=== PATIENT | female | born 1955 | race Caucasian/White ===

== ENCOUNTER 2023-05-20 15:52 | Inpatient (IN) | payer MEDICARE, OTHER, SELFPAY ==
--- NOTE | 2023-05-20 12:12 | EDRN ---
Abe Holden PA in room w/ pt at this time.
--- NOTE | 2023-05-20 12:17 | ED.GENMED ---
History of Present Illness
General
Chief Complaint: Breathing Problem
Time Seen by Provider: 05/20/23 11:58
Travel History
Have you had any contact with someone who has COVID-19?: No
Do you have any symptoms of coronavirus? Fever > 100 degrees, chills, cough, shortness of breath, sore throat, loss of taste or smell, muscle aches, or headache?: Yes
Symptoms:: SOB
History of Present Illness
History of Present Illness:
67-year-old female with history of asthma, hypertension, and hyperlipidemia presents to the emergency department for evaluation of shortness of breath associated with nasal congestion and coughing for the past 3 to 4 days. Went to her primary care
physician today and was noted to be hypoxic on room air and was thus sent to the emergency department. Patient has no chronic oxygen need. She does not utilize nebulizers for her asthma routinely. She does report a fever over the weekend but this
is since resolved. Did not take any Tylenol or Motrin today. Denies any chest pain.
Review of Systems
Review of Systems
Allergies reviewed?: Yes
All Other Systems: ROS reviewed and negative except as documented in HPI and ROS
Phy Exam
Physical Exam
Physical Exam:
GEN: Tachypneic but otherwise appears well, no immediate distress
Eyes: PERRLA, EOMs intact, no scleral icterus
HENT: NCAT, oral mucosa moist
Lungs: Tachypnea, no accessory muscle use while on supplemental oxygen, expiratory wheezes with prolonged expiratory phase heard throughout all lung lopez, good air exchange throughout
Cardiac: RRR, no M/R/G, no peripheral edema. Radial pulses 2+ bilat
Abdomen: S, NT, ND, NABS, no masses or hepatosplenomegaly
Neuro: AO x 3
MSK: No gross deformity or ecchymosis. morbid obesity limits assessment for edema in the lower extremities
Skin: No rashes, petechiae. Normal color, no pallor or jaundice.
Psych: Calm, cooperative, proper hygiene
Scores
Heart Failure Risk
Heart Failure Risk Score: Not Applicable
Course
Orders/Labs/Results
Orders:
Orders
05/20/23 12:15
Ipratropium/Albuterol Sulfate [Duoneb] 3 ml INH R NOW ONE
05/20/23 12:16
Electrocardiogram (*1) Urgent
Reason for Study: Other
Other Reason for Exam: sepsis
EKG- Treatment ONCE
CR Chest - 2 Views Urgent
Comment:
Reason For Exam: SOB
05/20/23 12:42
COVID-19 Antigen Urgent
Source: Nasal Swab
Comprehensive Metabolic Panel Urgent
Lactic Acid Q4H
Comment: CANCEL 2nd LACTIC ACID IF 1st LACTIC ACID IS LESS THAN 2
NT-proBNP Urgent
Procalcitonin Urgent
PCT Algorithmm Indication: Respiratory
Troponin I Urgent
Blood Culture Q30M
XIANG Source: Blood/Venous
Specimen Description:
Influenza A+B Rapid Molecular Urgent
XIANG Source: Nasal Swab
Specimen Description:
05/20/23 12:58
Blood Culture Q30M
XIANG Source: Blood/Venous
Specimen Description:
05/20/23 14:10
MethylPREDNISolone PF [Solu-Medrol Pf] 125 mg IV NOW STA
05/20/23 14:14
Complete Blood Count/With Diff Routine
Prothrombin Time Routine
05/20/23 15:22
Admit/Transfer Patient As Directed
Co-Sign Provider:
Level of Care: Inpatient admission
Assign to:: Medical/Surgical
Physician / Group: Modesta Luciano
Diagnosis: Asthma exacerbation
Reason for Hospitalization: Asthma exacerbation
Expected length of stay greater than two midnights?: Yes
ELOS- Estimated Length of Stay in days: 2
I certify the patient meets the requirements for IP care: Yes
05/20/23 15:30
Code Status As Directed
Resuscitation Status: Full Code
05/20/23 16:26
Lactic Acid Q4H
Comment: CANCEL 2nd LACTIC ACID IF 1st LACTIC ACID IS LESS THAN 2
Abnormal Lab Results
05/20/23 05/20/23
12:42 14:14
MPV 10.6 H fL
(7.4-10.4)
Absolute Monos (auto) 1.1 H 10^3/uL
(0.1-0.6)
Lymphocytes % 16.7 L %
(20.5-51.1)
Monocytes % 12.9 H %
(1.7-9.3)
PT 15.5 H Sec
(11.4-14.6)
Sodium 132 L mmol/L
(135-145)
Glucose 111 H mg/dl
(70-99)
05/20/23 14:14
05/20/23 12:42
Vital Signs
Initial and Last Documented VS:
Initial Vital Signs
Temp Pulse Resp BP Pulse Ox
97.9 F 93 18 161/83 89
05/20/23 11:45 05/20/23 11:45 05/20/23 11:45 05/20/23 11:45 05/20/23 11:45
Last Documented Vital Signs
Temp Pulse Resp BP Pulse Ox
97.9 F 78 25 147/75 92
05/20/23 11:45 05/20/23 16:45 05/20/23 16:45 05/20/23 16:00 05/20/23 16:45
MDM/Problems Addressed
MDM/Problems Addressed:
Patient noted to be hypoxic on room air. She is diffusely wheezy with no focal abnormal breath sounds, chest x-ray independently interpreted by me is markedly limited by patient body habitus, suspicion for possible left lower lobe infiltrate
however the patient is currently afebrile with a negative procalcitonin. Her presentation is more consistent with viral induced asthmatic exacerbation as opposed to acute bacterial pneumonia. Will treat supportively with steroids and nebulizers.
Given her hypoxia will admit to the hospitalist service
*Critical Care Note
Total Time (30-74mins, 75-104mins- exclusive of procedures): Not Applicable
ED Attending Note
-
Portions of this chart may have been created with voice recognition software.� Occasional wrong word or��sound alike� substitutions may have occurred due to the inherent limitations of voice recognition software.
Discharge Plan
Departure
Patient Disposition: Admit
Date of Disposition: 05/20/23
Time of Disposition: 14:13
Admit to: Med/Surg
Presentation/result/management discussed w/ accepting MD/DO: Hospitalist
Discharge Problem:
Acute asthma exacerbation
Interventions
Interventions:
*Risk Screen - Suicide Last Done: 05/20/23 11:49
*General Assessment Last Done: 05/20/23 11:49
*Neglect/Abuse Screening Last Done: 05/20/23 11:49
ED- Fall Risk Assessment Last Done: 05/20/23 13:00
*ED COVID-19 Vaccine History Last Done: 05/20/23 12:10
ED- Cardiac Assessment Last Done: 05/20/23 13:00
ED- Pulmonary Assessment Last Done: 05/20/23 13:00
[2023-05-20 13:06] LABS: Lactic Acid 0.8 mmol/L (0.7-2.0)
[2023-05-20 13:09] LABS: ALT (SGPT) 17 U/L (0-35); AST (SGOT) 22 U/L (14-36); Albumin 4.1 g/dl (3.5-5.0); Alkaline Phosphatase 89 U/L (38-126); Blood Urea Nitrogen 16 mg/dl (7-17); Calcium 9.1 mg/dl (8.4-10.2); Carbon Dioxide 26 mmol/L (22-30); Chloride 102 mmol/L (98-107); Glucose 111 mg/dl (70-99); Sodium 132 mmol/L (135-145); Total Bilirubin 0.8 mg/dl (0.2-1.3); Total Protein 6.7 g/dl (6.3-8.2); eGFR > 60.00
[2023-05-20] MEDS: DUONEB 3 ML INH ×2 (13:12→19:32)
[2023-05-20 13:13] LABS: Potassium 4.6 mmol/L (3.5-5.1)
[2023-05-20 13:17] LABS: COVID-19 Antigen Negative (Negative)
[2023-05-20 13:20] LABS: NT-proBNP 490 pg/ml; Troponin I < 0.012 ng/ml
[2023-05-20 13:22] LABS: Procalcitonin < 0.05 ng/ml (0.0-0.25)
--- NOTE | 2023-05-20 14:29 | HPS.HSE ---
Family Physician
-
Family Physician: Luis Enrique Ray
Chief Complaint
-
shortness of breath
History of Present Illness
67 female history of morbid obesity hypertension hyperlipidemia tremor bipolar depression presents with progressive persistent shortness of breath wheezing past 3 days with associated fevers chills. Reports a fever high of 101 at home. Afebrile on
ED evaluation, hypoxic on room air 80s, improved with 2 L nasal cannula supplementation. Blood pressure stable. Chest x-ray concerning for possible left lower lobe opacification pneumonia however procalcitonin negative. No significant white
count. COVID flu negative. Patient symptomatically improved with IV steroids and bronchodilators as given in ED, though remains oxygen dependent at this time.
Medical History
Past Medical History
Past Medical History: Reports Other (As above)
Past Surgical History: Reports Other (As above)
Social History
Tobacco: Non-smoker
Alcohol: None
Drug: None
Personal:
Living: Alone
Employment: Not Employed
Family History
Family History: Not pertinent (Reviewed)
Allergies / Home Medications
Allergies reflects when Allergies were last updated in [facility].
Home Medications with original date entered in [facility]
Allergy/Medication List:
Allergies
Allergy/AdvReac Type Severity Reaction Status Date / Time
carbamazepine [From Tegretol] Allergy Intermediate Rash Verified 05/20/23 11:45
erythromycin base AdvReac Nausea / Verified 05/20/23 11:45
Vomiting
Home Medications
acetaminophen 500 mg tablet (Tylenol Extra Strength) 500 mg PO DAILYPRN PRN mild pain 05/20/23
albuterol sulfate 90 mcg/actuation aerosol inhaler 1 puff inhalation R Q4HPRN PRN sob 05/20/23
clobetasol 0.05 % topical cream 1 applic topical HS apply to B/L hands 05/20/23
lithium carbonate 300 mg tablet 300 mg PO DAILY 05/20/23
lithium carbonate 300 mg tablet 600 mg PO QPM 05/20/23
nebivolol 5 mg tablet 5 mg PO QPM 05/20/23
sertraline 100 mg tablet 50 mg PO DAILY 05/20/23
therapeutic multivitamin 1 tab PO DAILY 05/20/23
ziprasidone HCl 40 mg capsule 40 mg PO BID 05/20/23
Review of Systems
-
A 12 point ROS was completed and negative except as noted: Yes
Constitutional: Reports Other (As below)
Physical Exam
Vital Signs
Vital Signs
Temp Pulse Resp BP Pulse Ox
97.9 F 87 23 162/62 99
05/20/23 11:45 05/20/23 14:15 05/20/23 14:15 05/20/23 14:07 05/20/23 13:30
Physical Exam
General: Other (As below)
Laboratory Results
-
05/20/23 12:42
Laboratory Results
PT Cancelled 05/20/23 12:42
INR Cancelled 05/20/23 12:42
Lactic Acid 0.8 mmol/L (0.7-2.0) 05/20/23 12:42
Total Bilirubin 0.8 mg/dl (0.2-1.3) 05/20/23 12:42
AST 22 U/L (14-36) 05/20/23 12:42
ALT 17 U/L (0-35) 05/20/23 12:42
Alkaline Phosphatase 89 U/L (38-126) 05/20/23 12:42
Troponin I < 0.012 ng/ml 05/20/23 12:42
Impression/Plan
-
ROS
General: Denies fever chills night sweats unexpected weight loss
Neuro: Resting tremors present for years as per patient denies seizure loss of consciousness dizziness vertigo
Psych: denies depression hallucinations confusion manic episodes
Endocrine: Denies polyuria polydipsia polyphagia heat/cold intolerance
HEENT: Denies blindness visual disturbances epistaxis
Pulmonary: reports sob dyspnea on exertion wheezing
Cardiovascular: denies chest pain palpitations leg swelling
Hematology: denies signs symptoms of anemia easy bruising/bleeding
Gastrointestinal: denies nausea vomiting diarrhea constipation hematemesis hematochezia melena
Genito-Urinary: denies retention incontinence dysuria
Musculoskeletal: denies joint pain weakness
Dermatology: denies rash laceration bruising
Physical Exam
General: No pallor, cyanosis, or jaundice. Morbidly obese
HEENT: Throat clear. PERRLA Normocephalic atraumatic hirsutism
NECK: Supple. No JVD Carotid Bruits
RESPIRATORY: wheezing
CVS: S1, S2 normal. RRR. No murmur, rub or gallop.
ABDOMEN: Soft, non-tender. No distension. BS+/normal.
EXTREMITIES: No peripheral cyanosis or edema. Left lower extremity psoriasis plaque du just above the foot nontender
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
IMPRESSION:
67 female history of morbid obesity hypertension hyperlipidemia tremor bipolar depression presents with progressive persistent shortness of breath wheezing past 3 days with associated fevers chills. Reports a fever high of 101 at home. Afebrile on
ED evaluation, hypoxic on room air 80s, improved with 2 L nasal cannula supplementation. Blood pressure stable. Chest x-ray concerning for possible left lower lobe opacification pneumonia however procalcitonin negative. No significant white
count. COVID flu negative. Patient symptomatically improved with IV steroids and bronchodilators as given in ED, though remains oxygen dependent at this time.
PLAN:
#Asthma exacerbation due to other viral respiratory infection not COVID or flu
MedSurg admit
DuoNebs 4 times daily
Albuterol as needed
Received Solu-Medrol 125 mg in ED, will continue with oral prednisone 50 mg daily
Wean oxygen as tolerated
PT OT eval
#Hypertension
Continue home nebivolol with holding parameters
#Bipolar depression
Continue home lithium sertraline ziprasidone
DVT prophylaxis Lovenox
GI prophylaxis Protonix
Meds reconciled and resumed as appropriate
Full code as per patient
Discussed with patient and her Howard
I spent a total of 76 minutes with the patient or on the floor. More than 50% of this time involved counseling and coordination of care.
[2023-05-20 14:56] LABS: % Basophils 0.2 % (0-2); % Eosinophils 0.4 % (0-6); % Immature Granulocytes 0.2 % (0-0.5); % Lymphocytes 16.7 % (20.5-51.1); % Monocytes 12.9 % (1.7-9.3); % Neutrophils 69.6 % (42.2-75.2); Absolute Lymphocytes 1.4 10^3/uL (1.2-3.4); Absolute Monocytes 1.1 10^3/uL (0.1-0.6); Absolute Neutrophils 5.9 10^3/uL (1.4-6.5); Hematocrit 38.8 % (37.0-47.0); Hemoglobin 13.2 g/dL (12.0-16.0); Mean Corpuscular Hgb 28.6 pg (27.0-31.0); Mean Platelet Volume 10.6 fL (7.4-10.4); Nucleated Red Blood Cells % 0 %; Platelet Count 262 10^3/uL (130-400); Red Blood Cell Count 4.62 10^6/uL (4.20-5.40); Red Cell Dist. Width 13.6 % (11.5-14.5); White Blood Cell Count 8.5 10^3/uL (4.8-10.8)
--- NOTE | 2023-05-20 15:00 | EDRN ---
Pt was seen by Dr. Luciano at this time.
[2023-05-20 15:01] LABS: INR 1.25; PT 15.5 Sec (11.4-14.6)
[2023-05-20] MEDS: SOLU-MEDROL PF 125 MG IV (15:17)
--- NOTE | 2023-05-20 16:33 | EDRN ---
Pt OOB to commode and back to stretcher after voiding at this time.
[2023-05-20 16:47] LABS: Lactic Acid 0.7 mmol/L (0.7-2.0)
--- NOTE | 2023-05-20 18:30 | PTCARENOTE ---
Patient admitted to room 434-1. AAOx3. VSS. Oriented to unit and call palacios system. Able to make needs known. Will ring for assistance for OOB ambulation.
[2023-05-20] MEDS: DUONEB INH (19:32)
[2023-05-20] MEDS: LOVENOX 40 MG SC (20:02)
[2023-05-20] MEDS: GEODON 40 MG PO (20:03)
[2023-05-20] MEDS: BYSTOLIC 5 MG PO (20:03)
[2023-05-20] MEDS: ESKALITH REGULAR RELEASE 600 MG PO (20:17)
--- NOTE | 2023-05-21 07:08 | W.PN.HOSP.TC ---
Today's Communication/Plan
-
wean O2 as tolerated
steroid taper
bronchodilators
PT/OT
Assessment / Plan
Assessment / Plan
Physical Exam
General: No pallor, cyanosis, or jaundice. Morbidly obese
HEENT: Throat clear. PERRLA Normocephalic atraumatic hirsutism
NECK: Supple. No JVD Carotid Bruits
RESPIRATORY: wheezing
CVS: S1, S2 normal. RRR.� No murmur, rub or gallop.
ABDOMEN: Soft, non-tender. No distension. BS+/normal.
EXTREMITIES: No peripheral cyanosis or edema.� Left lower extremity psoriasis plaque du just above the foot nontender
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
IMPRESSION:
67 female history of morbid obesity CHYNA hypertension hyperlipidemia tremor bipolar depression presents with progressive persistent shortness of breath wheezing past 3 days with associated fevers chills.� Reports a fever high of 101 at home.�
Afebrile on ED evaluation, hypoxic on room air 80s, improved with 2 L nasal cannula supplementation.� Blood pressure stable.� Chest x-ray concerning for possible left lower lobe opacification pneumonia however procalcitonin negative.� No significant
white count.� COVID flu negative.� Patient symptomatically improved with IV steroids and bronchodilators as given in ED, though remains oxygen dependent at this time.
PLAN:
#Asthma exacerbation due to other viral respiratory infection not COVID or flu
MedSurg admit
DuoNebs 4 times daily
Albuterol as needed
Received Solu-Medrol 125 mg in ED, steroid continued with oral prednisone 50 mg daily, tapered to 40 mg daily
Wean oxygen as tolerated
PT OT eval appreciated home health
#CHYNA
cont cpap
#Hypertension
Continue home nebivolol with holding parameters
#Bipolar depression
Continue home lithium sertraline ziprasidone
DVT prophylaxis Lovenox
GI prophylaxis Protonix
Meds reconciled and resumed as appropriate
Full code as per patient
Discussed with patient and her Howard
I spent a total of � 76 � minutes with the patient or on the floor. More than 50% of this time involved counseling and coordination of care.
Anticipated Discharge: 24 - 48 hours
Subjective/Interval History
-
Date of Service: May 21, 2023
Seen and examined at bedside in no acute distress. Reports improvement in wheezing sob
Objective Data
-
Labs:
Laboratory Results
05/21/23
06:27
WBC Pending
Hgb Pending
Hct Pending
Plt Count Pending
Sodium Pending
Potassium Pending
Chloride Pending
Carbon Dioxide Pending
BUN Pending
Creatinine Pending
Glucose Pending
Calcium Pending
Vital Signs:
Vital Signs
Temp Pulse Resp BP Pulse Ox
97.5 F 70 18 148/73 95
05/20/23 22:53 05/20/23 22:53 05/20/23 22:53 05/20/23 22:53 05/20/23 23:45
I&O
05/20/23 05/21/23 05/22/23
06:59 06:59 06:59
Intake Total 480 / 480
Output Total 400 / 400
Balance 80 / 80
[2023-05-21] MEDS: DUONEB 3 ML INH ×4 (07:48→19:21)
[2023-05-21 08:00] LABS: Hematocrit 38.7 % (37.0-47.0); Mean Corp Hgb Conc. 33.6 g/dL (33.0-37.0); Mean Corpuscular Hgb 28.2 pg (27.0-31.0); Mean Corpuscular Volume 83.9 fL (81.0-99.0); Mean Platelet Volume 10.2 fL (7.4-10.4); Platelet Count 264 10^3/uL (130-400); Red Blood Cell Count 4.61 10^6/uL (4.20-5.40); Red Cell Dist. Width 13.4 % (11.5-14.5); White Blood Cell Count 4.2 10^3/uL (4.8-10.8)
[2023-05-21] MEDS: DELTASONE 50 MG PO (08:08)
[2023-05-21] MEDS: ZOLOFT 50 MG PO (08:08)
[2023-05-21] MEDS: PROTONIX 40 MG PO (08:08)
[2023-05-21] MEDS: GEODON 40 MG PO ×2 (08:08→20:29)
[2023-05-21] MEDS: ESKALITH REGULAR RELEASE 300 MG PO (08:09)
[2023-05-21] MEDS: THERAGRAN 1 TABLET PO (08:09)
[2023-05-21 08:39] LABS: Blood Urea Nitrogen 21 mg/dl (7-17); Calcium 9.1 mg/dl (8.4-10.2); Carbon Dioxide 24 mmol/L (22-30); Chloride 107 mmol/L (98-107); Estimated Creatinine Clearance 118 ml/min; Glucose 138 mg/dl (70-99); Magnesium 2.3 mg/dl (1.6-2.3); Potassium 4.4 mmol/L (3.5-5.1); Sodium 137 mmol/L (135-145); eGFR > 60.00
--- NOTE | 2023-05-21 11:53 | CM ---
Patient lives alone in a one story home, with one step to enter, patient is independent with adl's and ambulation, patient has a CPAP machine in home, patient does not have a nebulizer or home oxygen. Patient drives, patient has a perscrion plan and
uses [facility].
Per [facility] (patient's pharmacy), if patient needs a Nebulizer cost is $35.69 and they have them in stock.
PCP: Dr. Ray
Plan; Home when stable, will follow for oxygen needs at discharge.
[2023-05-21] MEDS: BYSTOLIC 5 MG PO (17:07)
[2023-05-21] MEDS: ESKALITH REGULAR RELEASE 600 MG PO (17:07)
[2023-05-21] MEDS: LOVENOX 40 MG SC (17:08)
--- NOTE | 2023-05-22 06:15 | PTCARENOTE ---
Pt with redness in abdominal folds and groin. Desenex powder ordered BID per protocol.
--- NOTE | 2023-05-22 07:27 | W.PN.HOSP.TC ---
Addendum entered and electronically signed by Modesta Luciano MD 05/22/23 11:52:
discussed with nurse respiratory therapist home oxygen assessment done does not qualify for home oxygen at this time.
Original Note:
Today's Communication/Plan
-
discharge
Assessment / Plan
Assessment / Plan
Physical Exam
General: No pallor, cyanosis, or jaundice. Morbidly obese
HEENT: Throat clear. PERRLA Normocephalic atraumatic hirsutism
NECK: Supple. No JVD Carotid Bruits
RESPIRATORY: clear to auscultation
CVS: S1, S2 normal. RRR.� No murmur, rub or gallop.
ABDOMEN: Soft, non-tender. No distension. BS+/normal.
EXTREMITIES: No peripheral cyanosis or edema.� Left lower extremity psoriasis plaque du just above the foot nontender
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
IMPRESSION:
67 female history of morbid obesity CHYNA hypertension hyperlipidemia tremor bipolar depression presents with progressive persistent shortness of breath wheezing past 3 days with associated fevers chills.� Reports a fever high of 101 at home.�
Afebrile on ED evaluation, hypoxic on room air 80s, improved with 2 L nasal cannula supplementation.� Blood pressure stable.� Chest x-ray concerning for possible left lower lobe opacification pneumonia however procalcitonin negative.� No significant
white count.� COVID flu negative.� Patient symptomatically improved with IV steroids and bronchodilators as given in ED, though remains oxygen dependent at this time.
PLAN:
#Asthma exacerbation due to other viral respiratory infection not COVID or flu
MedSurg admit
DuoNebs 4 times daily
Albuterol as needed
Received Solu-Medrol 125 mg in ED, steroid continued with oral prednisone 50 mg daily, tapered to 40 mg daily
Wean oxygen as tolerated
PT OT eval appreciated home health
pending home oxygen assessment
#CHYNA
cont cpap
#Hypertension
Continue home nebivolol with holding parameters
#Bipolar depression
Continue home lithium sertraline ziprasidone
DVT prophylaxis Lovenox
GI prophylaxis Protonix
Meds reconciled and resumed as appropriate
Full code as per patient
Medically stable for discharge home with VN. Question at this time as to whether patient needs home oxygen on discharge or not.
Total Time Preparing Discharge ___45____ minutes including examination of the patient, summary of the hospital stay, instructions for continuing care to all relevant caregivers; and preparation of discharge records, prescriptions, and referral
forms if necessary.
Anticipated Discharge: Today
Subjective/Interval History
-
Date of Service: May 22, 2023
no acute distress sitting up comfortably on room air breathing well no wheezing. Denies any new acute issues at this time. Eager to go home
Objective Data
-
Labs:
Laboratory Results
05/22/23
06:44
WBC Pending
Hgb Pending
Hct Pending
Plt Count Pending
Sodium Pending
Potassium Pending
Chloride Pending
Carbon Dioxide Pending
BUN Pending
Creatinine Pending
Glucose Pending
Calcium Pending
Vital Signs:
Vital Signs
Temp Pulse Resp BP Pulse Ox
97.8 F 77 18 99/71 93
05/21/23 23:37 05/21/23 23:37 05/21/23 23:37 05/21/23 23:37 05/21/23 23:37
I&O
05/21/23 05/22/23 05/23/23
06:59 06:59 06:59
Intake Total 480 / 480 960 / 960
Output Total 400 / 400
Balance 80 / 80 960 / 960
[2023-05-22 07:47] LABS: Hemoglobin 13.7 g/dL (12.0-16.0); Mean Corp Hgb Conc. 32.6 g/dL (33.0-37.0); Mean Corpuscular Hgb 27.9 pg (27.0-31.0); Mean Corpuscular Volume 85.5 fL (81.0-99.0); Mean Platelet Volume 10.7 fL (7.4-10.4); Platelet Count 323 10^3/uL (130-400); Red Blood Cell Count 4.91 10^6/uL (4.20-5.40); Red Cell Dist. Width 13.4 % (11.5-14.5); White Blood Cell Count 13.7 10^3/uL (4.8-10.8)
[2023-05-22] MEDS: GEODON 40 MG PO (07:52)
[2023-05-22] MEDS: ESKALITH REGULAR RELEASE 300 MG PO (07:53)
[2023-05-22] MEDS: DELTASONE 40 MG PO (07:54)
[2023-05-22] MEDS: DESENEX/MITRAZOL/ZEASORB 1 APPLIC TOPICAL (07:55)
[2023-05-22] MEDS: THERAGRAN 1 TABLET PO (07:58)
[2023-05-22] MEDS: ZOLOFT 50 MG PO (07:58)
[2023-05-22] MEDS: PROTONIX 40 MG PO (07:59)
[2023-05-22] MEDS: DUONEB 3 ML INH ×3 (08:13→15:30)
[2023-05-22 08:26] LABS: Blood Urea Nitrogen 31 mg/dl (7-17); Calcium 9.9 mg/dl (8.4-10.2); Carbon Dioxide 25 mmol/L (22-30); Chloride 102 mmol/L (98-107); Estimated Creatinine Clearance 104 ml/min; Glucose 110 mg/dl (70-99); Magnesium 2.5 mg/dl (1.6-2.3); Potassium 4.8 mmol/L (3.5-5.1); Sodium 137 mmol/L (135-145); eGFR > 60.00
--- NOTE | 2023-05-22 11:55 | W.DCSUMMARY ---
Discharge Summary
Discharge Data
Date of Admission: 05/20/23
Date of Discharge: 05/22/23
-
Pending Results: Yes
Additional Pending Results:
official blood culture results
Hospital Course
67F hx morbid obesity CHYNA hypertension hyperlipidemia tremor bipolar depression p/w progressive persistent shortness of breath wheezing past 3 days with associated fevers chills.� Reported a fever high of 101 at home.� Afebrile on ED evaluation,
hypoxic on room air 80s, improved with 2 L nasal cannula supplementation.� Blood pressure stable.� Chest x-ray concerning for possible left lower lobe opacification pneumonia however procalcitonin negative.� No significant white count.� COVID flu
negative.� Patient symptomatically improved with IV steroids and bronchodilators as given in ED, though remained oxygen dependent at the time. Asthma exacerbation due to other viral respiratory infection not COVID or flu, patient responded well to
bronchodilator therapy and steroids. Received Solu-Medrol 125 mg in ED, steroid was continued with oral prednisone 50 mg daily, tapered to 40 mg daily prior to discharge. Weaned off oxygen supplementation, PT OT evaluated and recommended home
health. Patient however declined. Home oxygen assessment noted no O2 needs, patient saturating well on room air with no significant desaturation on ambulation. Medically stable, patient was discharged home with outpatient follow up
recommendations and steroid taper.
Discharge Plan
-
Patient Disposition: Home (Routine Discharge)
Discharge Diagnosis/Procedures: Asthma Exacerbation
Condition: Fair
Diet: Regular
Activity: As tolerated and With Walker
Driving Restrictions: Not until seen by your Dr
Bathing Restrictions: None
Blood Work: Please repeat CBC with primary care provider in 1 week of discharge to follow up leukocytosis likely due to steroids.
Others Tests: Repeat Chest X-ray with primary care provider in 1 month of discharge.
Other Services: VN, PT and OT
Activity Restrictions/Additional Instructions:
Please follow up with primary care provider in 1 week of discharge
Prednisone taper has been prescribed for asthma exacerbation:
40 mg daily for 3 days, then
30 mg daily for 3 days, then
20 mg daily for 3 days, then
10 mg daily for 3 days, then stop
Please take medications as prescribed/recommended and follow up with primary care provider and/or other healthcare provider involved in your care for refills and/or further adjustments to your medication regimen as necessary.
Instructions: Asthma, Adult (DC)
Referrals:
Luis Enrique Ray MD [Family Provider] - in one week
Prescriptions:
New
prednisone 10 mg Tablet
See Rx Instructions .ROUTE .COMPLEX Qty: 30 0RF
Rx Instructions:
Take By Mouth:
40 mg daily x3 days, 30 mg daily x3 days,
20 mg daily x3 days, 10 mg daily x3 days.
Continued
sertraline 100 mg Tablet
50 mg PO DAILY
clobetasol 0.05 % Cream
1 applic TOPICAL HS
Patient Comments:
05/20/2023, pt. filled this med. on 05/13/2023 and is instructed to apply topically for 10 days.
therapeutic multivitamin Tablet
1 tab PO DAILY
acetaminophen [Tylenol Extra Strength] 500 mg Tablet
500 mg PO DAILYPRN PRN (Reason: mild pain)
ziprasidone HCl 40 mg Capsule
40 mg PO BID
albuterol sulfate 90 mcg/actuation Hfa Aerosol Inhaler
1 puff INHALATION R Q4HPRN PRN (Reason: sob)
lithium carbonate 300 mg Tablet
300 mg PO DAILY
lithium carbonate 300 mg Tablet
600 mg PO QPM
nebivolol 5 mg Tablet
5 mg PO QPM
Discharge Orders:
Discharge Patient (As Directed); Ordered 05/22/23
Ordered By: Modesta Luciano
Discharge Date and Time
Discharge Date/Time: 05/22/23 17:20
--- NOTE | 2023-05-22 14:25 | CM ---
manager meat reviewed patient's chart and discussed visiting nurses after discharge and patient declined visiting nurses, patient does not qualify for home oxygen and welfare case worker spoke with patient's pharmacy and they have nebulizers in stock.
Plan; Home to friends house.
[2023-05-22] MEDS: ESKALITH REGULAR RELEASE 600 MG PO (17:06)
[2023-05-22] MEDS: BYSTOLIC 5 MG PO (17:07)
== END 2023-05-22 17:20 | disposition home or self-care (01) | DRG 202 ==
LOC: 4 WEST ACU 15:52
PROVIDERS: Physician Assistant; ADMITTING PHYSICIAN Internal Medicine; EMERGENCY PHYSICIAN Emergency Medicine; FAMILY PHYSICIAN Family Medicine
DX: J45.901 Unspecified asthma with (acute) exacerbation (principal); F31.30 Bipolar disorder, current episode depressed, mild or moderate severity, unspecified; Z68.44 Body mass index [BMI] 60.0-69.9, adult; I10 Essential (primary) hypertension; E66.01 Morbid (severe) obesity due to excess calories; G47.33 Obstructive sleep apnea (adult) (pediatric); E78.5 Hyperlipidemia, unspecified; Z11.52 Encounter for screening for COVID-19
CPT/HCPCS: 71046; 80048; 80053; 83605; 83735; 83880; 84145; 84484; 85025; 85027; 85610; 87040; 87502; 87811; 93005; 94640; 94660; 96374; 97162; 97166; 99285